=== PATIENT | female | born 1970 | race Two or more races ===

== ENCOUNTER 2020-09-23 14:19 | Emergency (ER) | payer OTHER ==
[~2020-09-23] VITALS: Ht 162.6 cm; Wt 63.5 kg
[2020-09-23 15:43] VITALS: BP 146/71
--- NOTE | 2020-09-23 15:45 | NUR ---
Patient discharged to home in stable condition. Written and verbal after care instructions given. Patient verbalizes understanding of instruction.
== END 2020-09-23 15:46 | disposition home or self-care (01) ==
LOC: ER 14:25
DX: G44.209 Tension-type headache, unspecified, not intractable (principal); R42 Dizziness and giddiness; I10 Essential (primary) hypertension
CPT/HCPCS: 70450-TC

== ENCOUNTER 2022-01-19 22:35 | Emergency (ER) | payer OTHER ==
[~2022-01-19] VITALS: Ht 160 cm; Wt 63.5 kg
--- NOTE | 2022-01-19 22:47 | NUR ---
BIBSELF C/O HIGH BP AT HOME, FEELING DIZZY, N/V . PT A/OX4. TOLERATING R/A WELL WITH NO SOB. CONNECTED PT TO POX AND MONITOR,
--- NOTE | 2022-01-19 22:57 | NUR ---
FRAME STYLIST AT PT'S BEDSIDE
[2022-01-19] MEDS ORDERED: MECLIZINE HCL 25 MG TABLET PO ONE (23:00)
[2022-01-20 00:01] LABS: CALCIUM, SERUM 9.4 mg/dL (8.5-10.1); CREATININE 0.7 mg/dL (0.6-1.3); POTASSIUM 3.3 mmol/L (3.5-5.1)
[2022-01-20] MEDS ORDERED: MECL-159 PO (00:20)
[2022-01-20 01:16] VITALS: BP 148/89
== END 2022-01-20 01:16 | disposition home or self-care (01) ==
LOC: ER 22:39
DX: H81.393 Other peripheral vertigo, bilateral (principal); I10 Essential (primary) hypertension
CPT/HCPCS: 36415; 80048; 84484; 99283; J8597